=== PATIENT | female | born 1950 | race Caucasian/White ===

== ENCOUNTER → 2024-06-23 10:03 | Outpatient (REF) | payer OTHER, SELFPAY | LOC: HWWDC 10:03 | PROVIDERS: ATTENDING PHYSICIAN Student in an Organized Health Care Education/Training Program | DX: Z12.31 Encounter for screening mammogram for malignant neoplasm of breast (principal) | CPT/HCPCS: 77063; 77067 ==

== ENCOUNTER → 2024-06-30 09:35 | Outpatient (REF) | payer OTHER, SELFPAY | LOC: WDC 09:35 | PROVIDERS: ATTENDING PHYSICIAN Student in an Organized Health Care Education/Training Program | DX: R92.8 Other abnormal and inconclusive findings on diagnostic imaging of breast (principal) | CPT/HCPCS: 76642 ==

== ENCOUNTER 2024-08-21 19:26 | Emergency (ER) | payer OTHER, SELFPAY ==
[2024-08-21 19:29] VITALS: BP 152/124
--- NOTE | 2024-08-21 22:26 | ED.GENMED ---
History of Present Illness
General
Chief Complaint: Back Pain
Source: patient and spouse
Exam Limitations: dementia (Slight but able to answer some questions)
Time Seen by Provider: 08/21/24 22:03
History of Present Illness
History of Present Illness:
This is a 74 year old female that is brought in by her . states that about 6:45pm she started with this spasm in the back. States that this has happened before and she went to the PCP and they found that she has a UTI. Denies any
falls or injury. Denies any fever, chills, chest pain, SOB, abd pain, nauseas, vomiting, diarrhea, headache, dizziness, urinary burning.
Past History
Past History
ED Past Medical History: HTN and Other (cervical disc disease/arthritis, dementia, Osteoporosis)
ED Past Surgical History: Gynecological (Tubal ligation) and Other (poor memory?)
Social History
Tobacco: Smoker
Alcohol: Daily (3 beers)
Drug: None
Personal:
Living: with family
Family History
Family History: Other (No significant)
Review of Systems
Review of Systems
Unable to obtain full review of systems at this time due to: dementia
Other source history: family
All Other Systems: ROS reviewed and negative except as documented in HPI and ROS
Constitutional: Reports no symptoms; Denies fever or chills
EENT: Reports no symptoms
Respiratory: Reports no symptoms; Denies cough or trouble breathing
Cardiac: Reports no symptoms; Denies chest pain
ABD/GI: Reports no symptoms; Denies abdominal pain, nausea, vomiting or diarrhea
: Reports no symptoms; Denies dysuria, frequency or urgency
Musculoskeletal: Reports other (occasional back spasm)
Skin: Reports no symptoms
Neurological: Reports no symptoms; Denies dizzy or headache
Psychiatric: Reports no symptoms
Phy Exam
General Physical Exam
General Presentation: no apparent distress
General age: appears stated age
General Skin: warm and dry
General Habitus: elderly
General Mental: usual mental status
General Hydration: dry mucous membranes
ENT Exam
ENT Exam: TM's normal, pharynx normal and neck supple
Eye Exam
Eye Exam: EOMI
Cardiovascular Exam
Cardiovascular Exam: regular rate/rhythm, no edema and normal peripheral pulses
Pulmonary Exam
Pulmonary Exam: lungs clear, no respiratory distress, no rales, chest non tender, no crackles, no rhonchi, no wheezing and no cough
Gastrointestinal Exam
Gastrointestinal Exam: normal bowel sounds, non tender, soft, no organomegaly, no pulsatile mass and non distended
Musculoskeletal Exam
Musculoskeletal Exam: full ROM, no edema and other (Negative for any spinal tenderness. Patient was able to sit up in bed without any difficulty)
Skin Exam
Skin Exam: normal color, warm/dry, no rash and no petechia
Psychiatric Exam
Psychiatric Exam: normal mood/affect
Course
Orders/Labs/Results
Orders:
Orders
08/21/24 19:32
EKG [Electrocardiogram (*1)] Urgent
Reason for Study: Other
Other Reason for Exam: back pain
EKG- Treatment ONCE
08/21/24 22:25
Straight cath- Treatment ONCE
08/21/24 22:49
Urinalysis Reflex To Culture Urgent
Date Specimen was Collected: 08/21/24
Time Specimen was Collected: 19:33
Urine Microscopic Reflex Cult Urgent
Urine Culture Urgent
GANESH Source: U
Specimen Description:
Date Specimen was Collected: 08/21/24
Time Specimen was Collected: 19:33
08/21/24 23:40
Complete Blood Count/With Diff Urgent
Comprehensive Metabolic Panel Urgent
Abnormal Lab Results
08/21/24 08/21/24
22:49 23:40
MCHC 32.4 L g/dL
(33.0-37.0)
MPV 10.5 H fL
(7.4-10.4)
BUN 22 H mg/dl
(7-17)
Creatinine 1.4 H mg/dL
(0.6-1.0)
Glucose 102 H mg/dl
(70-99)
Calcium 10.7 H mg/dl
(8.4-10.2)
Leukocyte Esterase Rfl 1+ A
(Negative)
Urine WBC (Reflex) 11-15 A /HPF
(0-5)
Urine Bacteria (Reflex) Many A
(Negative)
08/21/24 23:40
08/21/24 23:40
Vital Signs
Initial and Last Documented VS:
Initial Vital Signs
Temp Pulse Resp BP Pulse Ox
97.7 F 75 17 152/124 99
08/21/24 19:29 08/21/24 19:29 08/21/24 19:29 08/21/24 19:29 08/21/24 19:29
Last Documented Vital Signs
Temp Pulse Resp BP Pulse Ox
97.7 F 60 16 99/58 95
08/21/24 19:29 08/21/24 22:29 08/21/24 22:29 08/21/24 22:29 08/21/24 22:29
MDM/Problems Addressed
Differential Diagnosis Includes:
UTI, bladder spasm, Muscle spasm in back
MDM/Problems Addressed:
This is a 74 year old female that is brought in by her with c/o spasm in her back. states that this started out of the blue around 6:45pm and that she has been urinating frequently. States that this has happened before and she was
found to have a UTI.
Will check labs and get urine.
Back into see patient and . Explained that the patient blood work shows dehydration and that her urine is positive for infection. Will place patient on antibiotics and have her follow up with the family doctor. Patient to return with any
conerns.
Chronic conditions affecting care:
NA
Acute Exacerbation and/or Progression of Chronic Illness:
NA
*Pulse Oximetry
Patient hypoxic: no
*EKG
Interpreted by ED Provider?: Yes
Heart Rate: 71
Rate: normal
Rhythm: sinus
Cosby: left axis deviation
Interval: first degree heart block
QRS Pattern: right bundle branch block
Ischemia: no ischemia
*Sales Support Rep Interpretation
Rate: Sales Support Rep- N/A
*Critical Care Note
Total Time (30-74mins, 75-104mins- exclusive of procedures): Not Applicable
ED Attending Note
-
Portions of this chart may have been created with voice recognition software.� Occasional wrong word or��sound alike� substitutions may have occurred due to the inherent limitations of voice recognition software.
Discharge Plan
Departure
Patient Disposition: Home (Routine Discharge)
Date of Disposition: 08/22/24
Time of Disposition: 00:48
Patient with high blood pressure during this ER visit?: No
Condition: Good
Covid-19: Not Applicable
Discharge Problem:
Urinary tract infection
Instructions: Urinary Tract Infection, Adult ED
Prescriptions:
New
cephalexin 500 mg capsule
500 mg PO BID 7 Days Qty: 14 0RF
No Action
oxycodone-acetaminophen 5 MG/325 MG tablet
1 - 2 tab PO Q4HPRN PRN (Reason: severe pain) Qty: 20 0RF
tramadol 50 mg tablet
50 mg PO Q8H PRN (Reason: Pain) Qty: 12 0RF
Referrals:
Blas Montez, [Family Provider] - Call in 1-3 days for appt
Activity Restrictions/Additional Instructions:
As discussed, your blood work shows some dehydration. Please increase your water intake to 8-8oz glasses daily. Your urine is positive for infection. You have been given your first dose of antibiotic here and a prescription has been sent to your
Pharmacy. Please follow up with the family doctor for recheck and repeat urine after you have completed your antibiotic. IF YOU HAVE ANY FEVER, INCREASED OR CHANGING PAIN, OR YOU HAVE ANY OTHER CONCERNS PLEASE RETURN
Interventions
Interventions:
*Risk Screen - Suicide Last Done: 08/21/24 22:29
*General Assessment Last Done: 08/21/24 22:29
*Neglect/Abuse Screening Last Done: 08/21/24 22:29
ED- Fall Risk Assessment Last Done: 08/21/24 22:29
*ED COVID-19 Vaccine History Last Done: 08/21/24 22:29
ED-Musculoskeletal Assessment Last Done: 08/21/24 22:29
Discharge Date and Time
Print Language: DANISH
[2024-08-21 22:29] VITALS: BP 99/58
[2024-08-21 23:00] LABS: Urine Albumin Trace (Neg - Trace); Urine Bilirubin Negative (Negative); Urine Character Clear (Clear); Urine Color Yellow; Urine Glucose Negative (Negative); Urine Ketone Negative (Negative); Urine Leukocyte 1+ (Negative); Urine Nitrite Negative (Negative); Urine Occult Blood Negative (Negative); Urine Specific Gravity 1.025 (<1.030); Urine Urobilinogen Negative (Neg - 1+)
[2024-08-21 23:12] LABS: Urine Bacteria Many (Negative); Urine Red Blood Cell 0-2 /HPF (0-2)
[2024-08-21 23:52] LABS: % Basophils 0.6 % (0-2); % Immature Granulocytes 0.2 % (0-0.5); % Lymphocytes 26.6 % (20.5-51.1); % Monocytes 7.6 % (1.7-9.3); Absolute Eosinophils 0.1 10^3/uL (0-0.7); Absolute Lymphocytes 1.7 10^3/uL (1.2-3.4); Absolute Monocytes 0.5 10^3/uL (0.1-0.6); Hematocrit 40.7 % (37.0-47.0); Hemoglobin 13.2 g/dL (12.0-16.0); Mean Corp Hgb Conc. 32.4 g/dL (33.0-37.0); Mean Corpuscular Hgb 29.2 pg (27.0-31.0); Mean Platelet Volume 10.5 fL (7.4-10.4); Nucleated Red Blood Cells % 0 %; Platelet Count 279 10^3/uL (130-400); Red Blood Cell Count 4.52 10^6/uL (4.20-5.40); Red Cell Dist. Width 13.7 % (11.5-14.5); White Blood Cell Count 6.2 10^3/uL (4.8-10.8)
[2024-08-22 00:04] LABS: ALT (SGPT) 21 U/L (0-35); AST (SGOT) 29 U/L (14-36); Albumin 4.8 g/dl (3.5-5.0); Alkaline Phosphatase 56 U/L (38-126); Blood Urea Nitrogen 22 mg/dl (7-17); Calcium 10.7 mg/dl (8.4-10.2); Carbon Dioxide 28 mmol/L (22-30); Chloride 103 mmol/L (98-107); Glucose 102 mg/dl (70-99); Potassium 4.3 mmol/L (3.5-5.1); Sodium 142 mmol/L (135-145); Total Bilirubin 0.4 mg/dl (0.2-1.3); Total Protein 7.7 g/dl (6.3-8.2); eGFR 39.48
[2024-08-22] MEDS: KEFLEX 500 MG PO (00:57)
[2024-08-22 01:00] VITALS: BP 111/65
== END 2024-08-22 01:00 | disposition home or self-care (01) ==
LOC: EMR 19:26
PROVIDERS: Clinical Nurse Specialist Family Health; Emergency Medicine; EMERGENCY PHYSICIAN Emergency Medicine; FAMILY PHYSICIAN Student in an Organized Health Care Education/Training Program
DX: N39.0 Urinary tract infection, site not specified (principal); F03.90 Unspecified dementia, unspecified severity, without behavioral disturbance, psychotic disturbance, mood disturbance, and anxiety; E86.0 Dehydration; F17.200 Nicotine dependence, unspecified, uncomplicated
CPT/HCPCS: 99283; 80053; 81003; 81015; 85025; 87086; 93005